=== PATIENT | female | born 1965 | race Caucasian/White ===

== ENCOUNTER 2017-01-19 22:14 | Inpatient (IN) | payer SELFPAY ==
--- NOTE | 2017-01-19 22:21 | ER Document Report ---
ED General - General Stated Complaint: HIP PAIN Notes: Old female with chronic pain syndrome on chronic narcotics presents with left distal hip pain acute onset an hour ago when she slipped on the floor. She was able to stand and bear weight, then took an oxycodone then called 911. She was unable to bear weight for paramedics to give her Dilaudid and brought her in. She has some "dazed" feeling but did not hit her head or lose consciousness has no neck pain or arm pain or rib pain or belly pain. No numbness or tingling in the foot. No pain on the right side. - Related Data Allergies/Adverse Reactions: No Known Allergies Allergy (Verified 01/19/17 22:23) Past Medical History - General Information source: Patient - Social History Smoking Status: Current Every Day Smoker Family History: None Past Surgical History: Reports: Hx Appendectomy, Hx Tonsillectomy - Immunizations Hx Diphtheria, Pertussis, Tetanus Vaccination: Yes - 2003 Review of Systems - Review of Systems Notes: REVIEW OF SYSTEMS GEN: Denies fever, chills, weight loss ENT: Denies sore throat, nasal discharge, ear pain EYES: Denies blurry vision, eye pain, discharge CV: Denies chest pain, palpitations, edema RESP: Denies cough, shortness of breath, wheezing GI: Denies abdominal pain, nausea, vomiting, diarrhea MSK: Left leg pain SKIN: Denies rash, skin lesions LYMPH: Denies swollen glands/lymph nodes NEURO: Denies headache, focal weakness or numbness, dizziness PSYCH: Denies depression, suicidal or homicidal ideation PHYSICAL EXAMINATION General: No acute distress, well-nourished Head: Atraumatic, normocephalic ENT: Mouth normal, oropharynx moist, no exudates or tonsillar enlargement Eyes: Conjunctiva normal, pupils equal, lids normal Neck: No JVD, supple, no guarding CVS: Normal rate, regular rhythm, no murmurs Resp: No resp distress, equal and normal breath sounds bilaterally GI: Nondistended, soft, no tenderness to palpation, no rebound or guarding Ext: Feng flexion. Tender in the distal femur area without spasm deformity. Knee cage ankle-foot normal on the left. Pelvis hip and lumbar spine normal on the left. Pulses. No edema. Back: No CVA or midline TTP Skin: No rash, warm Lymphatic: No lymphadeopathy noted Neuro: Awake, alert. Face symmetric. GCS 15. Course - Re-evaluation Re-evalutation: 01/19/17 22:20 Acute left distal femur pain after a fall. She was able to bear weight but is in a significant amount of pain. She appears intoxicated likely from narcotics. I will withhold further narcotics until I receive the results of her x-ray. Left hip and left femur ordered. No evidence of torso head or neck trauma. 01/19/17 22:58 X-rays show hip fracture minimally displaced transcervical. Distal femur is intact. Spoke with Dr. Rodriguez who requested hospitalist admit. 01/19/17 23:08 Maira refused admission. Michael accepted. I ordered an entire preoperative workup which will be followed up by the admitting providers. Will order as needed pain medication until they can take over. Patient informed. - Diagnostic Test Radiology reviewed: Image reviewed, Reports reviewed Discharge - Discharge Clinical Impression: Closed left hip fracture Qualifiers: Encounter type: initial encounter Qualified Code(s): S72.002A - Fracture of unspecified part of neck of left femur, initial encounter for closed fracture Condition: Good Disposition: ADMITTED INPATIENT Admitting Provider: Michael- ORTHO Unit Admitted: Surgical Floor
[2017-01-19] MEDS ORDERED: FENTANYL CITRATE INJ/PF 100 MCG/2 ML AMPUL IV ONE (23:09)
--- NOTE | 2017-01-19 23:18 | RADIOLOGY REPORT (SQ) ---
EXAM DESCRIPTION: HIP LEFT AP/LATERAL COMPLETED DATE/TIME: 01/19/2017 11:05 pm REASON FOR STUDY: fall pn COMPARISON: None. NUMBER OF VIEWS: Two views. TECHNIQUE: AP pelvis and additional frog-leg view of the left hip. LIMITATIONS: None. FINDINGS: MINERALIZATION: Normal. LEFT HIP: Fracture of the femoral neck. RIGHT HIP: No fracture or dislocation. No worrisome bone lesions. PUBIS AND ISCHIUM: No fracture. PELVIS: No fracture. SACRUM: No fracture or dislocation. No worrisome bone lesions. LOWER LUMBAR SPINE: No fracture or dislocation. No worrisome bone lesions. No significant disc disea se. SOFT TISSUES: No findings. OTHER: IUD in the pelvis. IMPRESSION: LEFT HIP FRACTURE. TECHNICAL DOCUMENTATION: JOB ID: [id number] [employer]- All Rights Reserved
--- NOTE | 2017-01-19 23:19 | RADIOLOGY REPORT (SQ) ---
EXAM DESCRIPTION: FEMUR LEFT COMPLETED DATE/TIME: 01/19/2017 11:05 pm REASON FOR STUDY: fall pn COMPARISON: None. NUMBER OF VIEWS: Two views. TECHNIQUE: Two radiographic images acquired of the left femur to include hip and knee in at least on e projection. LIMITATIONS: The proximal femur including the hip is included in the x-ray of the hip. FINDINGS: MINERALIZATION: Normal. BONES: Left femoral neck fracture demonstrated on the hip x-ray. Remainder of the femur is intact. No worrisome bone lesions. SOFT TISSUES: No obvious swelling or foreign body. OTHER: No other significant finding. IMPRESSION: FRACTURE OF THE LEFT FEMORAL NECK DEMONSTRATED ON SEPARATE X-RAY OF THE HIP. REMAINDER OF THE FEMUR IS INTACT. TECHNICAL DOCUMENTATION: JOB ID: [id number] [employer]- All Rights Reserved
[2017-01-19 23:53] LABS: ABSOLUTE BASOPHILS # (AUTO) 0.1 10^3/uL (0.0-0.2); ABSOLUTE EOSINOPHILS # (AUTO) 0.1 10^3/uL (0.0-0.6); ABSOLUTE MONOCYTES (AUTO) 0.7 10^3/uL (0.1-1.4); ABSOLUTE NEUT (AUTO) 5.7 10^3/uL (1.7-8.2); BASOPHILS % (AUTO) 0.7 % (0-2); EOSINOPHILS % (AUTO) 0.7 % (0-6); HEMATOCRIT 40.2 % (36.0-47.0); HEMOGLOBIN 13.3 g/dL (12.0-15.5); HGB HCT DIFFERENCE -0.3; LYMPHOCYTES % (AUTO) 23.1 % (13-45); MEAN CORPUSCULAR HEMOGLOBIN 33.4 pg (27.0-33.4); MEAN CORPUSCULAR HGB CONC 33.1 g/dL (32.0-36.0); MEAN CORPUSCULAR VOLUME 101 fl (80-97); MONOCYTES % (AUTO) 8.7 % (3-13); RED BLOOD COUNT 3.99 10^6/uL (3.72-5.28); RED CELL DISTRIBUTION WIDTH 12.8 % (11.5-14.0); SEGMENTED NEUTROPHILS % (AUTO) 66.8 % (42-78); WHITE BLOOD COUNT 8.5 10^3/uL (4.0-10.5)
[2017-01-20 00:14] LABS: ANION GAP 14 (5-19); BLOOD UREA NITROGEN 11 mg/dL (7-20); CALCIUM 9.2 mg/dL (8.4-10.2); CARBON DIOXIDE 22 mmol/L (22-30); CHLORIDE 103 mmol/L (98-107); CREATININE RESULT 0.64 mg/dL (0.52-1.25); GLUCOSE 92 mg/dL (75-110); POTASSIUM 4.5 mmol/L (3.6-5.0)
[2017-01-20] MEDS ORDERED: MORPHINE SULFATE 10 MG/ML INJ ONE (00:57)
[2017-01-20] MEDS ORDERED: DEXTROSE 40% GEL 15 GM TUBE PO PRN ×2 (01:01)
[2017-01-20] MEDS ORDERED: DEXTROSE 50%-WATER 25 GM/50 ML DISP.SYRIN IV PRN ×2 (01:01)
[2017-01-20] MEDS ORDERED: GLUCAGON,HUMAN RECOMB 1 MG INJ SUBCUT PRN (01:01)
[2017-01-20] MEDS ORDERED: RINGERS SOLUTION,LACTATED 1,000 ML IV PRN ×2 (01:06→15:23)
[2017-01-20] MEDS ORDERED: ONDANSETRON HCL INJ/PF 4 MG/2 ML SDV IV PRN ×2 (01:07→15:23)
--- NOTE | 2017-01-20 01:23 | RADIOLOGY REPORT (SQ) ---
EXAM DESCRIPTION: CHEST SINGLE VIEW COMPLETED DATE/TIME: 01/20/2017 12:31 am REASON FOR STUDY: fall, left femoral neck fracture. COMPARISON: Chest x-ray 11/25/2011. Left hip x-ray 01/19/2017. EXAM PARAMETERS: NUMBER OF VIEWS: One view. TECHNIQUE: Single frontal radiographic view of the chest acquired. RADIATION DOSE: NA LIMITATIONS: The left costophrenic angle is excluded from the [id number]. FINDINGS: LUNGS AND PLEURA: The left costophrenic angle is excluded from the [id number]. No cons olidation, pneumothorax or obvious pleural effusion. MEDIASTINUM AND HILAR STRUCTURES: No masses. Contour normal. HEART AND VASCULAR STRUCTURES: Heart normal in size. No overt vascular congestion. BONES: No displaced rib fractures are identified. HARDWARE: None in the chest. IMPRESSION: No acute radiographic finding in the chest. TECHNICAL DOCUMENTATION: JOB ID: [id number]
[2017-01-20] MEDS: MORPHINE SULFATE 10 MG/ML INJ IV PRN ×5 (03:11→22:07)
[2017-01-20] MEDS ORDERED: DEXAMETHASONE SOD PHOSPHATE INJ 4 MG/1 ML VIAL ONE (08:08)
[2017-01-20] MEDS ORDERED: METOCLOPRAMIDE HCL INJ/PF 10 MG/2 ML SDV ONE (08:08)
[2017-01-20] MEDS ORDERED: ONDANSETRON HCL INJ/PF 4 MG/2 ML SDV ONE (08:08)
[2017-01-20] MEDS ORDERED: LIDOCAINE 2% INJ-PF (20 MG/ML) 10 ML AMPUL ONE (08:08)
[2017-01-20] MEDS ORDERED: PHENYLEPHRINE HCL INJ/PF 10 MG/1 ML SDV ONE (08:08)
--- NOTE | 2017-01-20 10:02 | EKG REPORT ---
SEVERITY:- NORMAL ECG - SINUS RHYTHM : Confirmed by: Obinna Boland MD 20-Jan-2017 10:01:51
[2017-01-20] MEDS ORDERED: TRANEXAMIC ACID INJ/PF 1,000 MG/10 ML SDV IV PRN (12:44)
[2017-01-20] MEDS ORDERED: VANCOMYCIN HCL 1,000 MG in DEXTROSE 5%-WATER 250 ML IV PRN (12:44)
[2017-01-20] MEDS ORDERED: IPRATROPIUM/ALBUTEROL 0.5-2.5 MG/3 ML AMPUL NEB ONE ×2 (12:55→13:46)
--- NOTE | 2017-01-20 12:56 | PDOC H&P ---
History of Present Illness Admission Date/PCP: 01/20/17 00:59 History of Present Illness: SARAH SNOWDEN is a 51 year old female with a history of chronic pain who slipped and fell on the day of admission. She was unable to bear weight on the left lower extremity. She is brought to the emergency room where displaced left femoral neck fracture was identified. She is admitted to the orthopedic service for fracture management. Past Medical History Medical History: None Psychiatric Medical History: Denies: Depression Past Surgical History Past Surgical History: Reports: Appendectomy, Tonsillectomy Social History Information Source: Patient, [facility] Records Smoking Status: Current Every Day Smoker Frequency of Alcohol Use: Social Hx Recreational Drug Use: No Drugs: None Hx Prescription Drug Abuse: No - Advance Directive Resuscitation Status: Full Code Family History Family History: None Parental Family History Reviewed: No Children Family History Reviewed: No Sibling(s) Family History Reviewed.: No Medication/Allergy Home Medications: Aspirin [Aspirin 81 mg Chewable Tablet] 81 mg PO DAILY 01/20/17 Allergies/Adverse Reactions: No Known Allergies Allergy (Verified 01/19/17 22:23) Review of Systems All systems: as per [facility] Physical Exam Vital Signs: Temp Pulse Resp BP Pulse Ox 36.7 C 66 16 114/71 97 01/20/17 11:52 01/20/17 11:52 01/20/17 11:52 01/20/17 11:52 01/20/17 11:52 Intake & Output 01/19/17 01/20/17 01/21/17 06:59 06:59 06:59 Intake Total 673 Output Total 1999 Balance -1327 Weight 59 kg General appearance: PRESENT: mild distress Head exam: PRESENT: normocephalic Eye exam: PRESENT: EOMI Respiratory exam: PRESENT: unlabored Cardiovascular exam: PRESENT: RRR Pulses: PRESENT: +1 pedal pulses bilateral Vascular exam: PRESENT: normal capillary refill GI/Abdominal exam: PRESENT: soft Rectal exam: PRESENT: deferred Extremities exam: PRESENT: other - Lower extremity shortened and externally rotated. Distal neurovascular examination is intact. Neurological exam: PRESENT: alert, awake, oriented to person, oriented to place , oriented to time, oriented to situation, CN II-XII grossly intact. ABSENT: motor sensory deficit Psychiatric exam: PRESENT: appropriate affect, normal mood. ABSENT: homicidal ideation, suicidal ideation Skin exam: PRESENT: dry, intact, warm. ABSENT: cyanosis, rash Results Impressions: Femur X-Ray 01/19/17 22:18 IMPRESSION: FRACTURE OF THE LEFT FEMORAL NECK DEMONSTRATED ON SEPARATE X-RAY OF THE HIP. REMAINDER OF THE FEMUR IS INTACT. Hip X-Ray 01/19/17 22:18 IMPRESSION: LEFT HIP FRACTURE. Chest X-Ray 01/20/17 00:00 IMPRESSION: No acute radiographic finding in the chest. Status: Imported from PACS Assessment & Plan - Diagnosis (1) Closed left hip fracture Qualifiers: Encounter type: initial encounter Qualified Code(s): S72.002A - Fracture of unspecified part of neck of left femur, initial encounter for closed fracture Is this a current diagnosis for this admission?: YesPlan: 51-year-old white female status post a fall with a displaced left femoral neck fracture. Patient will be best served to proximal femoral hemiarthroplasty. We will proceed with this under choice anesthesia on an inpatient basis. - Time Time Spent: 50 to 70 Minutes Anticipated discharge: SNF Within: Other
[2017-01-20] MEDS ORDERED: KETAMINE HCL INJ 500 MG/10 ML VIAL ONE (14:21)
[2017-01-20] MEDS ORDERED: EPHEDRINE SULFATE INJ 50 MG/1 ML AMPULE ONE (14:22)
[2017-01-20] MEDS ORDERED: FENTANYL CITRATE INJ/PF 100 MCG/2 ML AMPUL ONE (14:22)
[2017-01-20] MEDS ORDERED: MIDAZOLAM 2 MG/2 ML INJ ONE (14:22)
[2017-01-20] MEDS ORDERED: PROPOFOL INJ 200 MG/20 ML VIAL IV ONE (14:22)
[2017-01-20] MEDS ORDERED: ACETAMINOPHEN 100 ML IV ONE (14:23)
[2017-01-20] MEDS ORDERED: MORPHINE SULFATE 10 MG/ML INJ IV PRN ×2 (15:23)
[2017-01-20] MEDS ORDERED: ZOLPIDEM TARTRATE 5 MG TABLET PO PRN (15:23)
[2017-01-20] MEDS ORDERED: MAG HYDROX/AL HYDROX/SIMETH SUSP 30 ML UDCUP PO PRN (15:23)
[2017-01-20] MEDS ORDERED: ONDANSETRON 4 MG TAB.RAPDIS PO PRN (15:23)
[2017-01-20] MEDS ORDERED: MORPHINE SULFATE 10 MG/ML INJ IM PRN (15:23)
[2017-01-20] MEDS ORDERED: DIPHENHYDRAMINE HCL 50 MG/ML VIAL IV PRN (15:23)
--- NOTE | 2017-01-20 15:23 | Operative Report ---
Operative Report DATE OF SURGERY: 01/20/17 PREOPERATIVE DIAGNOSIS: Left femoral neck fracture OPERATION: Proximal femoral hemiarthroplasty SURGEON: KAYCE DONAHUE ANESTHESIA: Spinal TISSUE REMOVED OR ALTERED: Femoral head to pathology ESTIMATED BLOOD LOSS: 50 PROCEDURE: With the patient in a right lateral decubitus position the left lower extremity hindquarter prepped and draped in a sterile fashion. A curvilinear incision made over the greater trochanter a posterior approach the hip was taken. The femur was retracted anteriorly and underlying femoral neck and head are retrieved using a corkscrew. The femoral head was measured and noted to be 44 millimeters. Attention is now turned to the femur. Access is gained to the femoral canal using a box osteotome to the piriformis fossa. The femur is then prepared using a series of tapered broaches until a number 5 broach is seated. A trial reduction was now performed using a 44 head and -5 neck. Leg length was restored and there is excellent anterior posterior stability. A decision was made to proceed with this construct. All trial implants were removed. The final number 5 femoral stem is impacted into the canal. The -5 neck is impacted onto the trunnion. Final unipolar head 44 millimeters is impacted onto the neck. The hip was reduced. The wound is copiously irrigated with pulsed lavage. A subsequent closed in layers using Vicryl and wallace. A sterile dressing is applied. The patient was returned to the recovery room in satisfactory condition.
--- NOTE | 2017-01-20 16:11 | RADIOLOGY REPORT (SQ) ---
EXAM DESCRIPTION: PELVIS AP COMPLETED DATE/TIME: 01/20/2017 4:03 pm REASON FOR STUDY: Post Op Long Cassette in PACU COMPARISON: 01/19/2017. NUMBER OF VIEWS: One view TECHNIQUE: Digital radiographic images of the pelvis post-procedure LIMITATIONS: None. FINDINGS: BONES: No worrisome or unexpected findings post-procedure. DEVICE: Bi-polar prothesis. Device appears in appropriate location. SOFT TISSUES: No worrisome findings. Expected postoperative soft tissue changes. IMPRESSION: SATISFACTORY POSTOPERATIVE PELVIS. TECHNICAL DOCUMENTATION: JOB ID: [id number] [employer]- All Rights Reserved
[2017-01-20] MEDS: PREGABALIN 75 MG CAPSULE PO SCH (17:21)
[2017-01-20] MEDS: SENNOSIDES/DOCUSATE 8.6-50 MG 1 EACH TABLET PO SCH (17:22)
[2017-01-20] MEDS ORDERED: IBUPROFEN 800 MG in NORMAL SALINE 250 ML IV SCH (18:00)
[2017-01-20] MEDS: OXYCODONE HCL IR 5 MG TABLET PO PRN (18:05)
[2017-01-20] MEDS ORDERED: TRANEXAMIC ACID INJ/PF 1,000 MG/10 ML SDV IV ONE (18:30)
[2017-01-20] MEDS: RIVAROXABAN 10 MG TABLET PO SCH (21:25)
[2017-01-20] MEDS: OXYCODONE HCL SR 10 MG TABLET PO SCH (21:25)
[2017-01-20] MEDS: ACETAMINOPHEN 100 ML IV SCH (23:44)
[2017-01-21] MEDS: OXYCODONE HCL IR 5 MG TABLET PO PRN ×3 (03:01→20:05)
[2017-01-21] MEDS ORDERED: VANCOMYCIN HCL 1,000 MG in DEXTROSE 5%-WATER 250 ML IV ONE (03:23)
[2017-01-21] MEDS: ACETAMINOPHEN 100 ML IV SCH ×3 (05:41→17:47)
[2017-01-21] MEDS: LANSOPRAZOLE 30 MG TAB.RAP.DR PO SCH (05:43)
[2017-01-21] MEDS: MORPHINE SULFATE 10 MG/ML INJ IV PRN ×3 (05:45→18:49)
[2017-01-21 05:51] LABS: HEMATOCRIT 34.5 % (36.0-47.0); HEMOGLOBIN 11.6 g/dL (12.0-15.5); HGB HCT DIFFERENCE 0.3; MEAN CORPUSCULAR HEMOGLOBIN 33.6 pg (27.0-33.4); MEAN CORPUSCULAR HGB CONC 33.6 g/dL (32.0-36.0); MEAN CORPUSCULAR VOLUME 100 fl (80-97); RED BLOOD COUNT 3.46 10^6/uL (3.72-5.28); RED CELL DISTRIBUTION WIDTH 12.6 % (11.5-14.0); WHITE BLOOD COUNT 12.2 10^3/uL (4.0-10.5)
[2017-01-21 06:06] LABS: ANION GAP 7 (5-19); BLOOD UREA NITROGEN 9 mg/dL (7-20); CALCIUM 9.1 mg/dL (8.4-10.2); CARBON DIOXIDE 26 mmol/L (22-30); CHLORIDE 104 mmol/L (98-107); CREATININE RESULT 0.55 mg/dL (0.52-1.25); GLUCOSE 153 mg/dL (75-110); POTASSIUM 4.5 mmol/L (3.6-5.0); SODIUM 137.2 mmol/L (137-145)
[2017-01-21] MEDS: PREGABALIN 75 MG CAPSULE PO SCH ×2 (10:07→17:47)
[2017-01-21] MEDS: SENNOSIDES/DOCUSATE 8.6-50 MG 1 EACH TABLET PO SCH ×2 (10:07→17:47)
[2017-01-21] MEDS: OXYCODONE HCL SR 10 MG TABLET PO SCH ×2 (10:07→21:25)
[2017-01-21] MEDS: PRENATAL VITAMIN W-O CA NO5/FE FUMARATE/FA CAPSULE PO SCH (10:12)
[2017-01-21] MEDS: RIVAROXABAN 10 MG TABLET PO SCH (21:25)
[2017-01-22] MEDS: MORPHINE SULFATE 10 MG/ML INJ IV PRN ×3 (02:11→20:37)
[2017-01-22] MEDS: OXYCODONE HCL IR 5 MG TABLET PO PRN ×3 (04:44→21:48)
[2017-01-22] MEDS: LANSOPRAZOLE 30 MG TAB.RAP.DR PO SCH (05:30)
[2017-01-22 07:05] LABS: HEMATOCRIT 34.1 % (36.0-47.0); HEMOGLOBIN 11.5 g/dL (12.0-15.5); HGB HCT DIFFERENCE 0.4; MEAN CORPUSCULAR HGB CONC 33.7 g/dL (32.0-36.0); MEAN CORPUSCULAR VOLUME 101 fl (80-97); RED BLOOD COUNT 3.38 10^6/uL (3.72-5.28); RED CELL DISTRIBUTION WIDTH 12.6 % (11.5-14.0); WHITE BLOOD COUNT 10.5 10^3/uL (4.0-10.5)
--- NOTE | 2017-01-22 07:48 | PDOC PROGRESS REPORT ---
Subjective Progress Note for:: 01/22/17 Subjective:: Complaining of increased pain today Physical Exam Vital Signs: Temp Pulse Resp BP Pulse Ox 36.8 C 62 19 89/48 L 94 01/22/17 00:00 01/22/17 00:00 01/22/17 00:00 01/22/17 00:00 01/22/17 00:00 Intake & Output 01/21/17 01/22/17 01/23/17 06:59 06:59 06:59 Intake Total 6440 4704 Output Total 6780 Balance -340 4704 Weight 62.1 kg General appearance: PRESENT: mild distress Head exam: PRESENT: normocephalic Eye exam: PRESENT: EOMI Respiratory exam: PRESENT: unlabored Cardiovascular exam: PRESENT: RRR Pulses: PRESENT: +1 pedal pulses bilateral Vascular exam: PRESENT: normal capillary refill GI/Abdominal exam: PRESENT: soft Rectal exam: PRESENT: deferred Extremities exam: PRESENT: other - Left hip dressing is clean dry and intact. There is minimal induration. There is no erythema. Distal neurovascular examination is intact. Leg lengths are equal. Neurological exam: PRESENT: alert, awake, oriented to person, oriented to place , oriented to time, oriented to situation. ABSENT: motor sensory deficit Psychiatric exam: PRESENT: agitated Skin exam: PRESENT: dry, intact, warm. ABSENT: cyanosis, rash Results Laboratory Results: 01/22/17 06:42 01/21/17 05:25 01/22/17 06:42 WBC 10.5 RBC 3.38 L Hgb 11.5 L Hct 34.1 L MCV 101 H MCH 34.0 H MCHC 33.7 RDW 12.6 Plt Count 198 Impressions: Femur X-Ray 01/19/17 22:18 IMPRESSION: FRACTURE OF THE LEFT FEMORAL NECK DEMONSTRATED ON SEPARATE X-RAY OF THE HIP. REMAINDER OF THE FEMUR IS INTACT. Hip X-Ray 01/19/17 22:18 IMPRESSION: LEFT HIP FRACTURE. Chest X-Ray 01/20/17 00:00 IMPRESSION: No acute radiographic finding in the chest. Pelvis X-Ray 01/20/17 15:24 IMPRESSION: SATISFACTORY POSTOPERATIVE PELVIS. Status: Imported from PACS Assessment & Plan - Diagnosis (1) Closed left hip fracture Qualifiers: Encounter type: initial encounter Qualified Code(s): S72.002A - Fracture of unspecified part of neck of left femur, initial encounter for closed fracture Is this a current diagnosis for this admission?: YesPlan: 51-year-old white female status post left proximal femoral hemiarthroplasty, postop day 2. Limited progress with physical therapy yesterday ambulating 40 feet. - Time Time Spent with patient: 15-24 minutes Anticipated discharge: Home with Homehealth Within: within 24 hours
[2017-01-22] MEDS: OXYCODONE HCL SR 10 MG TABLET PO SCH (10:30)
[2017-01-22] MEDS: PREGABALIN 75 MG CAPSULE PO SCH ×2 (10:30→17:45)
[2017-01-22] MEDS: SENNOSIDES/DOCUSATE 8.6-50 MG 1 EACH TABLET PO SCH ×2 (10:30→17:45)
[2017-01-22] MEDS: PRENATAL VITAMIN W-O CA NO5/FE FUMARATE/FA CAPSULE PO SCH (10:33)
[2017-01-22] MEDS: RIVAROXABAN 10 MG TABLET PO SCH (21:48)
[2017-01-23] MEDS: MORPHINE SULFATE 10 MG/ML INJ IV PRN ×3 (00:38→15:30)
[2017-01-23] MEDS: OXYCODONE HCL IR 5 MG TABLET PO PRN ×3 (04:10→19:27)
[2017-01-23] MEDS: LANSOPRAZOLE 30 MG TAB.RAP.DR PO SCH (05:04)
[2017-01-23 06:32] LABS: HEMATOCRIT 35.3 % (36.0-47.0); HEMOGLOBIN 11.9 g/dL (12.0-15.5); HGB HCT DIFFERENCE 0.4; MEAN CORPUSCULAR HEMOGLOBIN 33.6 pg (27.0-33.4); MEAN CORPUSCULAR HGB CONC 33.6 g/dL (32.0-36.0); MEAN CORPUSCULAR VOLUME 100 fl (80-97); RED BLOOD COUNT 3.54 10^6/uL (3.72-5.28); RED CELL DISTRIBUTION WIDTH 12.9 % (11.5-14.0)
--- NOTE | 2017-01-23 07:34 | PDOC PROGRESS REPORT ---
Subjective Progress Note for:: 01/23/17 Subjective:: He reports that left hip pain is interfering with her ability to rehabilitate. Physical Exam Vital Signs: Temp Pulse Resp BP Pulse Ox 36.5 C 66 18 117/60 97 01/23/17 00:34 01/23/17 00:34 01/23/17 00:34 01/23/17 00:34 01/23/17 00:34 Intake & Output 01/22/17 01/23/17 01/24/17 06:59 06:59 06:59 Intake Total 4704 1330 Balance 4704 1330 Weight 62.1 kg 62.1 kg General appearance: PRESENT: mild distress Respiratory exam: PRESENT: unlabored Cardiovascular exam: PRESENT: RRR Extremities exam: PRESENT: other - Tip OpSite dressing is clean dry and intact without any drainage. Leg lengths are equal. There is no erythema induration or drainage. Distal neurovascular examination is intact. Results Laboratory Results: 01/23/17 06:07 01/21/17 05:25 01/23/17 06:07 WBC 9.0 RBC 3.54 L Hgb 11.9 L Hct 35.3 L MCV 100 H MCH 33.6 H MCHC 33.6 RDW 12.9 Plt Count 241 Impressions: Femur X-Ray 01/19/17 22:18 IMPRESSION: FRACTURE OF THE LEFT FEMORAL NECK DEMONSTRATED ON SEPARATE X-RAY OF THE HIP. REMAINDER OF THE FEMUR IS INTACT. Hip X-Ray 01/19/17 22:18 IMPRESSION: LEFT HIP FRACTURE. Chest X-Ray 01/20/17 00:00 IMPRESSION: No acute radiographic finding in the chest. Pelvis X-Ray 01/20/17 15:24 IMPRESSION: SATISFACTORY POSTOPERATIVE PELVIS. Status: Imported from PACS Assessment & Plan - Diagnosis (1) Closed left hip fracture Qualifiers: Encounter type: initial encounter Qualified Code(s): S72.002A - Fracture of unspecified part of neck of left femur, initial encounter for closed fracture Is this a current diagnosis for this admission?: YesPlan: 51-year-old white female postop day 2 from a left hemiarthroplasty for displaced femoral neck fracture. Hematocrit remains above 35%. Patient is ambulating 40 feet. Tentative plan would be for discharge home once the patient reached his appropriate functional milestones - Time Time Spent with patient: 15-24 minutes Anticipated discharge: Home with Homehealth Within: within 24 hours
[2017-01-23] MEDS: SENNOSIDES/DOCUSATE 8.6-50 MG 1 EACH TABLET PO SCH ×2 (10:48→18:17)
[2017-01-23] MEDS: PRENATAL VITAMIN W-O CA NO5/FE FUMARATE/FA CAPSULE PO SCH (10:48)
[2017-01-23] MEDS: PREGABALIN 75 MG CAPSULE PO SCH ×2 (10:48→18:17)
[2017-01-23] MEDS: ACETAMINOPHEN 325 MG TABLET PO PRN ×2 (10:51→19:28)
[2017-01-23] MEDS: RIVAROXABAN 10 MG TABLET PO SCH (21:37)
[2017-01-24] MEDS: OXYCODONE HCL IR 5 MG TABLET PO PRN ×2 (02:35→08:33)
[2017-01-24] MEDS: MORPHINE SULFATE 10 MG/ML INJ IV PRN (03:46)
[2017-01-24] MEDS: LANSOPRAZOLE 30 MG TAB.RAP.DR PO SCH (05:17)
--- NOTE | 2017-01-24 07:00 | PDOC DISCHARGE SUMMARY ---
General - Admit/Disc Date/PCP Admission Date/Primary Care Provider: 01/20/17 00:59 Discharge Date: 01/24/17 - Discharge Diagnosis (1) Closed left hip fracture Is this a current diagnosis for this admission?: Yes - Additional Information Resuscitation Status: Full Code Discharge Diet: As Tolerated, Regular Discharge Activity: Balance Activity w/Rest, No Driving, No tub bath Home Medications: Aspirin [Aspirin 81 mg Chewable Tablet] 81 mg PO DAILY 01/20/17 Oxycodone HCl [Oxy-Ir 5 mg Tablet] 5 mg PO Q6HP PRN #0 tablet 01/24/17 Rivaroxaban [Xarelto 10 mg Tablet] 10 mg PO QHS #0 tablet 01/24/17 History of Present Illness History of Present Illness: Patient is a 51-year-old white female who presents the emergency room status post a fall with a left femoral neck fracture diagnosed by x-ray. She is admitted to orthopedic service for fracture management. Hospital Course Hospital Course: Taken to the operating room and undergoes an uncomplicated left hemiarthroplasty. She is returned to the floor and seen by physical therapy. She makes slow steady progress with physical therapy. Continues to complain of inadequate analgesia. She is ambulating 80 feet on the day of discharge. Physical Exam Vital Signs: Temp Pulse Resp BP Pulse Ox 36.6 C 66 16 104/58 L 97 01/23/17 23:37 01/23/17 23:37 01/23/17 23:37 01/23/17 23:37 01/23/17 23:37 Intake & Output 01/22/17 01/23/17 01/24/17 06:59 06:59 06:59 Intake Total 4704 1330 1650 Balance 4704 1330 1650 Weight 62.1 kg 62.1 kg General appearance: PRESENT: mild distress Head exam: PRESENT: normocephalic Eye exam: PRESENT: EOMI Respiratory exam: PRESENT: unlabored Cardiovascular exam: PRESENT: RRR Pulses: PRESENT: +1 pedal pulses bilateral Vascular exam: PRESENT: normal capillary refill GI/Abdominal exam: PRESENT: soft Rectal exam: PRESENT: deferred Extremities exam: PRESENT: other - Tip dressing is clean dry and intact. Leg lengths are equal. Distal neurovascular examination is intact. Neurological exam: PRESENT: alert, awake, oriented to person, oriented to place , oriented to time, oriented to situation. ABSENT: motor sensory deficit Psychiatric exam: PRESENT: appropriate affect, normal mood. ABSENT: homicidal ideation, suicidal ideation Skin exam: PRESENT: dry, intact, warm. ABSENT: cyanosis, rash Results Laboratory Results: 01/23/17 06:07 01/21/17 05:25 Impressions: Femur X-Ray 01/19/17 22:18 IMPRESSION: FRACTURE OF THE LEFT FEMORAL NECK DEMONSTRATED ON SEPARATE X-RAY OF THE HIP. REMAINDER OF THE FEMUR IS INTACT. Hip X-Ray 01/19/17 22:18 IMPRESSION: LEFT HIP FRACTURE. Chest X-Ray 01/20/17 00:00 IMPRESSION: No acute radiographic finding in the chest. Pelvis X-Ray 01/20/17 15:24 IMPRESSION: SATISFACTORY POSTOPERATIVE PELVIS. Status: Imported from PACS Plan Discharge Plan: Discharge home with home health nursing, home health physical therapy, wheeled walker, bedside commode. Follow-up will be with frankie Rodriguez and [facility] for surgery in 2 weeks for staple removal.
[2017-01-24 08:25] VITALS: BP 133/92
[2017-01-24] MEDS: ACETAMINOPHEN 325 MG TABLET PO PRN (08:39)
[2017-01-24] MEDS: PREGABALIN 75 MG CAPSULE PO SCH (10:32)
[2017-01-24] MEDS: SENNOSIDES/DOCUSATE 8.6-50 MG 1 EACH TABLET PO SCH (10:33)
[2017-01-24] MEDS: PRENATAL VITAMIN W-O CA NO5/FE FUMARATE/FA CAPSULE PO SCH (10:33)
== END 2017-01-24 11:15 | disposition home health service (06) | DRG 470 ==
LOC: ER 22:14 → UNDOADMIN 23:34 → EH 23:34 → 4S 01-20 00:39 → EH 01-20 00:59 → 4S 01-20 00:59
PROVIDERS: ADMIT Orthopaedic Surgery; ATTEND Orthopaedic Surgery
PROC: 0SRS01Z Replacement of Left Hip Joint, Femoral Surface with Metal Synthetic Substitute, Open Approach (ICD-10-PCS; principal; 2017-01-20 14:30)
DX: S72.002A Fracture of unspecified part of neck of left femur, initial encounter for closed fracture (principal); W01.0XXA Fall on same level from slipping, tripping and stumbling without subsequent striking against object, initial encounter; F17.210 Nicotine dependence, cigarettes, uncomplicated; G89.4 Chronic pain syndrome; Y92.008 Other place in unspecified non-institutional (private) residence as the place of occurrence of the external cause; Z90.49 Acquired absence of other specified parts of digestive tract; Z79.82 Long term (current) use of aspirin; Z79.891 Long term (current) use of opiate analgesic
CPT/HCPCS: 01210; 36415; 71010; 72170; 80048; 85025; 85027; 86850; 86900; 86901; 88304; 88311; 93005; 93010; 94799; 99285; J0131; J1100; J2250; J2270; J2370; J2405; J2704; J2765; J3010; J3370; J3490; J7060; J7620

== ENCOUNTER 2017-02-18 19:44 | Emergency (ER) | payer SELFPAY | END 2017-02-18 20:15 | disposition left against medical advice (07) | LOC: ER 19:44 | DX: Z53.9 Procedure and treatment not carried out, unspecified reason (principal); M54.9 Dorsalgia, unspecified ==

== ENCOUNTER 2017-02-20 12:31 | Emergency (ER) | payer OTHER ==
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
[2017-02-20 13:56] VITALS: BP 100/47
== END 2017-02-20 13:53 | disposition home or self-care (01) ==
LOC: ER 12:31
DX: S16.1XXA Strain of muscle, fascia and tendon at neck level, initial encounter (principal); S39.012A Strain of muscle, fascia and tendon of lower back, initial encounter; V43.62XA Car passenger injured in collision with other type car in traffic accident, initial encounter
CPT/HCPCS: 99283

== ENCOUNTER 2019-01-27 09:43 | Emergency (ER) | payer SELFPAY ==
--- NOTE | 2019-01-27 10:25 | ER Document Report ---
ED GI/ - General Chief Complaint: STD Exposure Stated Complaint: POSSIBLE STD Time Seen by Provider: 01/27/19 10:14 Mode of Arrival: Ambulatory Information source: Patient Notes: Patient is a 53-year-old female who presents to the ER today for green vaginal discharge x3 days. Patient has had trichomonas STD before and is concerned that this feels like the same thing to her. Patient is sexually active and states that the condom did break prior to discharge starting. She admits to some burning with urination and some lower abdominal pain, no back pain or fever, no nausea or vomiting. TRAVEL OUTSIDE OF THE [place] IN LAST 30 DAYS: No - Related Data Allergies/Adverse Reactions: ibuprofen Allergy (Intermediate, Verified 02/20/17 12:52) ulcers in mouth acetaminophen [From Lortab] Allergy (Verified 01/27/19 09:54) hydrocodone [From Lortab] Allergy (Verified 01/27/19 09:54) naproxen Allergy (Verified 01/27/19 09:54) Past Medical History - General Information source: Patient - Social History Smoking Status: Former Smoker Frequency of alcohol use: None Drug Abuse: None Family History: None Patient has suicidal ideation: No Patient has homicidal ideation: No Renal/ Medical History: Denies: Hx Peritoneal Dialysis Psychiatric Medical History: Denies: Hx Depression Past Surgical History: Reports: Hx Appendectomy, Hx Orthopedic Surgery - L hip replacement, Hx Pancreatic Surgery - lef hip replacement, Hx Tonsillectomy, Other - left hip replacement - Immunizations Hx Diphtheria, Pertussis, Tetanus Vaccination: Yes - 2003 Review of Systems - Review of Systems Constitutional: No symptoms reported EENT: No symptoms reported Cardiovascular: No symptoms reported Respiratory: No symptoms reported Gastrointestinal: See HPI Genitourinary: No symptoms reported Female Genitourinary: See HPI Musculoskeletal: No symptoms reported Skin: No symptoms reported Hematologic/Lymphatic: No symptoms reported Neurological/Psychological: No symptoms reported Physical Exam - Vital signs Vitals: Temp Pulse Resp BP Pulse Ox 98.8 F 83 16 105/70 97 01/27/19 09:56 01/27/19 09:56 01/27/19 09:56 01/27/19 09:56 01/27/19 09:56 - Notes Notes: PHYSICAL EXAMINATION: GENERAL: Well-appearing and in no acute distress. HEAD: Atraumatic, normocephalic. EYES: Pupils equal round and reactive to light, extraocular movements intact, sclera anicteric, conjunctiva are normal. NECK: Normal range of motion, supple without lymphadenopathy LUNGS: CTAB and equal. No wheezes rales or rhonchi. HEART: Regular rate and rhythm without murmurs ABDOMEN: Soft, mild suprapubic tenderness. No guarding, no rebound BACK: no vertebral tenderness, normal ROM GI/: no CVA tenderness EXTREMITIES: Normal range of motion, no pitting edema. No cyanosis. NEUROLOGICAL: Cranial nerves grossly intact. Normal sensory/motor exams. PSYCH: Normal mood, normal affect. SKIN: Warm, Dry, normal turgor, no rashes or lesions noted Course - Re-evaluation Re-evalutation: 01/27/19 11:16 Patient positive for trichomonas, 4+ bacteria on her wet prep, gonorrhea chlamydia still pending, patient treated with Rocephin and azithromycin here in the emergency department, given 2 g of Flagyl to take once for her bacterial vaginosis and trichomonas. Urine culture pending as she did have leukocytes in her urinalysis that I suspect is due to pelvic infection and not UTI. - Vital Signs Vital signs: Temp Pulse Resp BP Pulse Ox 98.8 F 83 16 105/70 97 01/27/19 09:56 01/27/19 09:56 01/27/19 09:56 01/27/19 09:56 01/27/19 09:56 - Laboratory Laboratory results interpreted by me: 01/27/19 10:35 Ur Leukocyte Esterase LARGE H Discharge - Discharge Clinical Impression: Trichomonas vaginalis (TV) infection, Bacterial vaginitis Condition: Stable Disposition: HOME, SELF-CARE Instructions: Trichomonas Infection ([facility]), Vaginosis, Bacterial ([facility]) Additional Instructions: Return immediately for any new or worsening symptoms. Follow up with primary care provider, call tomorrow to make followup appoi ntment. Prescriptions: Metronidazole [Flagyl 500 mg Tablet] 2,000 mg PO ONCE PRN #4 tablet PRN Reason:
[2019-01-27 10:56] LABS: BACTERIA (WET MOUNT) 4+ BACTERIA SEEN; EPITHELIALS (WET MOUNT) 3+ EPITHELIALS SEEN; RBCS (WET MOUNT) RARE RBCS SEEN; T.VAGINALIS (WET MOUNT) TRICHOMONAS SEEN; WBCS (WET MOUNT) 3+ WBCS SEEN; YEAST (WET MOUNT) NO YEAST SEEN
[2019-01-27 11:02] LABS: APPEARANCE,URINE SLIGHTLY-CLOUDY; BILIRUBIN,URINE NEGATIVE (NEGATIVE); COLOR,URINE YELLOW; GLUCOSE, URINE NEGATIVE (NEGATIVE); KETONES,URINE NEGATIVE (NEGATIVE); LEUKOCYTE ESTERASE,URINE LARGE (NEGATIVE); NITRITE,URINE NEGATIVE (NEGATIVE); PROTEIN,URINE NEGATIVE (NEGATIVE); URINE SPECIFIC GRAVITY 1.006; UROBILINOGEN,URINE NEGATIVE mg/dL (<2.0)
[2019-01-27] MEDS ORDERED: CEFTRIAXONE INJ 250 MG VIAL IM ONE (11:13)
[2019-01-27] MEDS ORDERED: LIDOCAINE 1% INJ-PF (10 MG/ML) 30 ML SDV INFIL ONE (11:13)
[2019-01-27] MEDS ORDERED: AZITHROMYCIN 250 MG TABLET PO ONE (11:13)
[2019-01-27 12:12] VITALS: BP 102/65
[2019-01-27 12:21] LABS: CHLAM PCR NOT DETECTED (NOT DETECT)
== END 2019-01-27 12:12 | disposition home or self-care (01) ==
LOC: ER 09:43
DX: A59.01 Trichomonal vulvovaginitis (principal); N76.0 Acute vaginitis; B96.89 Other specified bacterial agents as the cause of diseases classified elsewhere; R30.9 Painful micturition, unspecified; R10.30 Lower abdominal pain, unspecified; Z87.891 Personal history of nicotine dependence; Z20.2 Contact with and (suspected) exposure to infections with a predominantly sexual mode of transmission
CPT/HCPCS: 99283; 96374; 96375; 87086; 87210; 81001; 87491; 87591; J3490; J0696

== ENCOUNTER 2019-03-24 08:03 | Emergency (ER) | payer SELFPAY ==
[2019-03-24] MEDS ORDERED: AZITHROMYCIN 250 MG TABLET PO ONE (08:58)
[2019-03-24] MEDS ORDERED: CEFTRIAXONE 1 GM/D5W RTU 1 GM/50 ML RTUPB IV ONE (08:58)
--- NOTE | 2019-03-24 09:02 | ER Document Report ---
ED General - General Chief Complaint: Chest Pain Stated Complaint: CHEST PAIN Time Seen by Provider: 03/24/19 08:48 Notes: 53-year-old female presents to the ER complaining of chest pain vaginal discharge burning with urination. The patient stated she had unprotected sexual intercourse with a gentleman she frequents on the . She began having symptoms on the she complains of green vaginal discharge. Complains of a sore throat they did have oral sex. The patient states the sore throat goes all the way down into her chest is giving her chest pain she denies shortness of breath. States is been coughing up green sputum. Denies fever chills. Denies diarrhea or constipation denies nausea. Complains of severe burning in her t hroat hurts worse to swallow. TRAVEL OUTSIDE OF THE [place] IN LAST 30 DAYS: No - Related Data Allergies/Adverse Reactions: ibuprofen Allergy (Intermediate, Verified 03/24/19 08:04) ulcers in mouth acetaminophen [From Lortab] Allergy (Verified 03/24/19 08:04) hydrocodone [From Lortab] Allergy (Verified 03/24/19 08:04) naproxen Allergy (Verified 03/24/19 08:04) Past Medical History - Social History Smoking Status: Current Every Day Smoker Family History: None Renal/ Medical History: Denies: Hx Peritoneal Dialysis Psychiatric Medical History: Denies: Hx Depression Past Surgical History: Reports: Hx Appendectomy, Hx Orthopedic Surgery - L hip replacement, Hx Pancreatic Surgery - lef hip replacement, Hx Tonsillectomy, Other - left hip replacement - Immunizations Hx Diphtheria, Pertussis, Tetanus Vaccination: Yes - 2003 Review of Systems - Review of Systems Constitutional: denies: Chills, Fever EENT: Throat pain Cardiovascular: Chest pain, Dyspnea Respiratory: Cough. denies: Short of breath Gastrointestinal: Abdominal pain. denies: Diarrhea, Nausea, Vomiting Genitourinary: Burning, Dysuria Female Genitourinary: Vaginal discharge Musculoskeletal: denies: Back pain Neurological/Psychological: denies: Headaches -: Yes All other systems reviewed and negative Physical Exam - Vital signs Vitals: Temp Pulse Resp BP Pulse Ox 98.6 F 95 19 107/63 96 03/24/19 08:14 03/24/19 08:14 03/24/19 08:14 03/24/19 08:14 03/24/19 08:14 - Notes Notes: GENERAL_APPEARANCE: well_nourished, alert, cooperative, no_acute_distress, no_obvious_discomfort. VITALS: reviewed, see vital signs table. HEAD: no_swelling\tenderness on the head. EYES: PERRL, EOMI, conjunctiva_clear. NOSE: no_nasal_discharge. MOUTH: (-)decreased moisture. No drooling or stridor THROAT: Mild throat_inflammation, no_airway_obstruction. no_lymphadenopathy, no asymmetry NECK: supple, no_neck_tenderness, (-)thyromegaly. BACK: no_back_tenderness. CHEST_WALL: no_chest_tenderness. LUNGS: no_wheezing, no_rales, no_rhonchi, (-)accessory muscle use, good air exchange bilateral. HEART: normal_rate, normal_rhythm, normal_S1, normal_S2, (-)S3, (-)S4, no_murmur, no_rub. ABDOMEN: normal_BS, soft, no_abd_tenderness, (-)guarding, (-)rebound, no_organomegaly, no_abd_masses. EXTREMITIES: good pulses in all_extremities, no_swelling\tenderness in the extremities, no_edema. SKIN: warm, dry, good_color, no_rash. MENTAL_STATUS: speech_clear, oriented_X_3, normal_affect, responds_appropriately to questions. NEURO: Neg Motor or Sensory Deficits on exam, CN 2-12 intact, DTR 2+ symmetric x 4, No cerbellar signs Course - Re-evaluation Re-evalutation: 03/24/19 09:01 53-year-old female presents with chest discomfort and sore throat. Patient stat es she had unprotected intercourse on the and began having symptoms on the she is having green vaginal discharge. She declined a pelvic pain so we will have her cell swab. Her abdomen is soft and supple we will check a urine. The patient also has a sore and red throat I do not see any green exudates or anything of a sore to suggest gonococcal pharyngitis however we will treat her empirically for her STD. EKG is a normal sinus rhythm. Checking just generalized labs my suspicion for ACS is low. 03/24/19 13:09 X-ray is normal. She was given antibiotics for STDs. Rapid strep is negative. Patient will be discharged home. Of urinary tract infection will be placed on Bactrim. - Vital Signs Vital signs: Temp Pulse Resp BP Pulse Ox 98.6 F 95 17 102/72 98 03/24/19 08:14 03/24/19 08:14 03/24/19 12:01 03/24/19 12:00 03/24/19 12:01 - Laboratory Result Diagrams: 03/24/19 09:32 03/24/19 09:32 Laboratory results interpreted by me: 03/24/19 03/24/19 09:32 09:32 WBC 13.4 H Absolute Neuts (auto) 10.0 H Urine Blood SMALL H Ur Leukocyte Esterase LARGE H - Diagnostic Test Radiology reviewed: Reports reviewed Radiology results interpreted by me: 03/24/19 13:09 Chest X-Ray 03/24/19 08:57 IMPRESSION: NO ACUTE RADIOGRAPHIC FINDING IN THE CHEST. - EKG Interpretation by [facility] EKG shows normal: Sinus rhythm Rhythm: NSR Discharge - Discharge Clinical Impression: Vaginal discharge, Sore throat UTI (urinary tract infection) Qualifiers: Urinary tract infection type: acute cystitis Hematuria presence: without hemat uria Qualified Code(s): N30.00 - Acute cystitis without hematuria Condition: Good Disposition: HOME, SELF-CARE Instructions: Trimethoprim-Sulfa ([facility]), Urinary Tract Infection ([facility]), Chest Pain of Unclear Cause ([facility]) Prescriptions: Sulfamethoxazole/Trimethoprim [Bactrim Ds Tablet] 1 each PO Q12 #14 tablet
--- NOTE | 2019-03-24 09:54 | RADIOLOGY REPORT (SQ) ---
EXAM DESCRIPTION: CHEST 2 VIEWS COMPLETED DATE/TIME: 03/24/2019 9:47 am REASON FOR STUDY: CP COMPARISON: 11/25/2011 EXAM PARAMETERS: NUMBER OF VIEWS: two views TECHNIQUE: Digital Frontal and Lateral radiographic views of the chest acquired. RADIATION DOSE: NA LIMITATIONS: none FINDINGS: LUNGS AND PLEURA: No opacities, masses or pneumothorax. No pleural effusion. MEDIASTINUM AND HILAR STRUCTURES: No masses or contour abnormalities. HEART AND VASCULAR STRUCTURES: Heart normal size. No evidence for failure. BONES: No acute findings. HARDWARE: None in the chest. OTHER: No other significant finding. IMPRESSION: NO ACUTE RADIOGRAPHIC FINDING IN THE CHEST. TECHNICAL DOCUMENTATION: JOB ID: [id number] [employer]- All Rights Reserved Reading location - IP/workstation name: [email or web address]
[2019-03-24 10:18] LABS: BACTERIA (WET MOUNT) 4+ BACTERIA SEEN; EPITHELIALS (WET MOUNT) 3+ EPITHELIALS SEEN; RBCS (WET MOUNT) 1+ RBCS SEEN; T.VAGINALIS (WET MOUNT) NO TRICHOMONAS SEEN; WBCS (WET MOUNT) 4+ WBCS SEEN; YEAST (WET MOUNT) NO YEAST SEEN
[2019-03-24 10:20] LABS: ABSOLUTE BASOPHILS # (AUTO) 0.1 10^3/uL (0.0-0.2); ABSOLUTE LYMPHOCYTES (AUTO) 2.3 10^3/uL (0.5-4.7); ABSOLUTE MONOCYTES (AUTO) 1.1 10^3/uL (0.1-1.4); BASOPHILS % (AUTO) 0.7 % (0-2); EOSINOPHILS % (AUTO) 0.2 % (0-6); HEMATOCRIT 41.5 % (36.0-47.0); HEMOGLOBIN 14.2 g/dL (12.0-15.5); LYMPHOCYTES % (AUTO) 16.8 % (13-45); MEAN CORPUSCULAR HEMOGLOBIN 31.8 pg (27.0-33.4); MEAN CORPUSCULAR HGB CONC 34.2 g/dL (32.0-36.0); MEAN CORPUSCULAR VOLUME 93 fl (80-97); MONOCYTES % (AUTO) 8.1 % (3-13); PLATELET COUNT 281 10^3/uL (150-450); RED BLOOD COUNT 4.46 10^6/uL (3.72-5.28); RED CELL DISTRIBUTION WIDTH 12.4 % (11.5-14.0); SEGMENTED NEUTROPHILS % (AUTO) 74.2 % (42-78); TOTAL CELLS COUNTED % (AUTO) 100 %; WHITE BLOOD COUNT 13.4 10^3/uL (4.0-10.5)
[2019-03-24 10:35] LABS: ANION GAP 12 (5-19); BLOOD UREA NITROGEN 7 mg/dL (7-20); CARBON DIOXIDE 27 mmol/L (22-30); CHLORIDE 99 mmol/L (98-107); GLUCOSE 102 mg/dL (75-110); POTASSIUM 4.4 mmol/L (3.6-5.0)
[2019-03-24 10:36] LABS: AMORPHOUS SEDIMENT,URINE TRACE /HPF; APPEARANCE,URINE CLOUDY; BILIRUBIN,URINE NEGATIVE (NEGATIVE); COLOR,URINE COLORLESS; GLUCOSE, URINE NEGATIVE (NEGATIVE); KETONES,URINE NEGATIVE (NEGATIVE); LEUKOCYTE ESTERASE,URINE LARGE (NEGATIVE); NITRITE,URINE NEGATIVE (NEGATIVE); PROTEIN,URINE NEGATIVE (NEGATIVE); UROBILINOGEN,URINE NEGATIVE mg/dL (<2.0)
[2019-03-24 10:37] LABS: URINE SPECIFIC GRAVITY 1.009
[2019-03-24 11:54] LABS: CHLAM PCR NOT DETECTED (NOT DETECT)
[2019-03-24 13:22] VITALS: BP 102/66
--- NOTE | 2019-03-24 14:28 | EKG REPORT ---
SEVERITY:- NORMAL ECG - SINUS RHYTHM : Confirmed by: Obinna Boland MD 24-Mar-2019 14:27:58
== END 2019-03-24 13:13 | disposition home or self-care (01) ==
LOC: ER 08:03
DX: J02.9 Acute pharyngitis, unspecified (principal); N30.00 Acute cystitis without hematuria; R07.9 Chest pain, unspecified; N89.8 Other specified noninflammatory disorders of vagina; R30.0 Dysuria; R05 Cough; R10.9 Unspecified abdominal pain; R06.00 Dyspnea, unspecified; F17.200 Nicotine dependence, unspecified, uncomplicated; Z88.8 Allergy status to other drugs, medicaments and biological substances; Z88.5 Allergy status to narcotic agent; Z90.49 Acquired absence of other specified parts of digestive tract; Z20.2 Contact with and (suspected) exposure to infections with a predominantly sexual mode of transmission
CPT/HCPCS: 93005; 36415; 87070; 87210; 87880; 85025; 80048; 81001; 84484; 87491; 87591; 71046; 93010; J0696; 96365; 99284

== ENCOUNTER 2019-07-29 15:19 | Emergency (ER) | payer SELFPAY ==
[2019-07-29 15:24] VITALS: BP 117/56
--- NOTE | 2019-07-29 15:36 | ER Document Report ---
ED GI/ - General Chief Complaint: Pain With Urination Stated Complaint: URINARY PAIN Time Seen by Provider: 07/29/19 15:30 Primary Care Provider: [facility] [Provider Group] - Follow up as needed [facility] [Provider Group] - Follow up as needed [facility] [Provider Group] - Follow up as needed [facility] [Provider Group] - Follow up as needed [facility] [Provider Group] - Follow up as needed Mode of Arrival: Ambulatory Information source: Patient Notes: 53-year-old female presents to ED for complaint of pelvic pain, vaginal discharge, and burning with urination. She states she has had similar symptoms before and had trichomonas and bacterial vaginosis in the past and been treated for this. She states her partner was also states he was treated but she is not sure because she is having the symptoms again. She states they do always use protection but the condom tore so she is concerned that she has an STD again. She does have some mild pelvic pain at this time. Will get a pelvic exam with swabs and a urine treat with Rocephin and azithromycin and wait for the urine and wet mount to come back in and treat accordingly for those. Patient is alert oriented respirations regular nonlabored speaking in full sentences. TRAVEL OUTSIDE OF THE [place] IN LAST 30 DAYS: No - HPI Patient complains to provider of: Pelvic pain, Vaginal discharge, Other - Pain and burning with urination Onset: Other - 3 days ago Timing/Duration: Gradual Quality of pain: Burning, Dull Severity at maximum: Mild Severity in ED: Mild Pain Level: 1 Location: Pelvis Vaginal bleeding (Compared to normal period): None Associated symptoms: Urinary frequency, Urinary urgency, Vaginal discharge Exacerbated by: Denies Relieved by: Denies Similar symptoms previously: Yes Recently seen / treated by doctor: No - Related Data Allergies/Adverse Reactions: ibuprofen Allergy (Intermediate, Verified 07/29/19 15:29) ulcers in mouth acetaminophen [From Lortab] Allergy (Verified 07/29/19 15:29) hydrocodone [From Lortab] Allergy (Verified 07/29/19 15:29) naproxen Allergy (Verified 07/29/19 15:29) Past Medical History - General Information source: Patient - Social History Smoking Status: Former Smoker Frequency of alcohol use: None Drug Abuse: None Lives with: Family - Controlled Family History: None Patient has suicidal ideation: No Patient has homicidal ideation: No - Past Medical History Cardiac Medical History: Reports: None Pulmonary Medical History: Reports: None EENT Medical History: Reports: None Neurological Medical History: Reports: None Endocrine Medical History: Reports: None Renal/ Medical History: Reports: Hx Pelvic Inflammatory Disease Malignancy Medical History: Reports: None GI Medical History: Reports: None Musculoskeletal Medical History: Reports Hx Arthritis, Reports Hx Musculoskeletal Deformity Skin Medical History: Reports None Psychiatric Medical History: Reports: Other - Chronic pain syndrome Traumatic Medical History: Reports: Hx Fractures Infectious Medical History: Reports: None Past Surgical History: Reports: Hx Appendectomy, Hx Orthopedic Surgery - L hip replacement, Hx Tonsillectomy - Immunizations Immunizations up to date: No Hx Diphtheria, Pertussis, Tetanus Vaccination: No - 2003 History of Pneumococcal Vaccine: No History of Influenza Vaccine for 04/2019 - 09/2019 Season: No Review of Systems - Review of Systems Constitutional: No symptoms reported EENT: No symptoms reported Cardiovascular: No symptoms reported Respiratory: No symptoms reported Gastrointestinal: No symptoms reported Female Genitourinary: Vaginal discharge, Vaginal odor, Other - Pelvic pain Musculoskeletal: No symptoms reported Skin: No symptoms reported Hematologic/Lymphatic: No symptoms reported Neurological/Psychological: No symptoms reported -: Yes All other systems reviewed and negative Physical Exam - Vital signs Vitals: Temp Pulse Resp BP Pulse Ox 97.6 F 72 16 117/56 L 100 07/29/19 15:23 07/29/19 15:23 07/29/19 15:23 07/29/19 15:23 07/29/19 15:23 Interpretation: Normal - General General appearance: Appears well, Alert - HEENT Head: Normocephalic, Atraumatic Eyes: Normal Pupils: PERRL - Respiratory Respiratory status: No respiratory distress Chest status: Nontender Breath sounds: Normal Chest palpation: Normal - Cardiovascular Rhythm: Regular Heart sounds: Normal auscultation Murmur: No - Abdominal Inspection: Normal Distension: No distension Bowel sounds: Normal Tenderness: Nontender Organomegaly: No organomegaly - Genitourinary External exam: Normal Speculum exam: Vaginal discharge Vaginal bleeding: None Bimanuel exam: Cervical motion tender, Adnexal tenderness - Back Back: Normal, Nontender - Extremities General upper extremity: Normal inspection, Nontender, Normal color, Normal ROM, Normal temperature General lower extremity: Normal inspection, Nontender, Normal color, Normal ROM, Normal temperature, Normal weight bearing. No: Erika's sign - Neurological Neuro grossly intact: Yes Cognition: Normal Orientation: AAOx4 [place] Coma Scale Eye Opening: Spontaneous Arash Coma Scale Verbal: Oriented Arash Coma Scale Motor: Obeys Commands Arash Coma Scale Total: 15 Speech: Normal Motor strength normal: LUE, RUE, LLE, RLE Sensory: Normal - Psychological Associated symptoms: Normal affect, Normal mood - Skin Skin Temperature: Warm Skin Moisture: Dry Skin Color: Normal Course - Re-evaluation Re-evalutation: 07/29/19 21:05 Discussed lab results with patient. Patient did request female swabs. Pelvic exam was completed swabs were completed patient was treated with antibiotics and discharged home. Patient was to call for results to the culture line. - Vital Signs Vital signs: Temp Pulse Resp BP Pulse Ox 97.6 F 72 16 117/56 L 100 07/29/19 15:23 07/29/19 15:23 07/29/19 15:23 07/29/19 15:23 07/29/19 15:23 - Laboratory Laboratory results interpreted by me: 07/29/19 15:43 Urine Blood SMALL H Leukocyte Esterase Rfl LARGE H Discharge - Discharge Clinical Impression: UTI (urinary tract infection) Qualifiers: Urinary tract infection type: acute cystitis Hematuria presence: without hematuria Qualified Code(s): N30.00 - Acute cystitis without hematuria Vaginitis Qualifiers: Chronicity: acute Qualified Code(s): N76.0 - Acute vaginitis Condition: Stable Disposition: HOME, SELF-CARE Additional Instructions: URINARY TRACT INFECTION: Your evaluation indicates that you have a urinary tract infection. This is due to germs growing in the bladder. This is a common problem. This infection usually responds quickly to antibiotics. Your antibiotic should be taken exactly as prescribed. Drink plenty of fluids -- three to four quarts a day. Occasionally, a bladder anesthetic will be prescribed to help stop the feeling of urgency until the antibiotic has a chance to clear the infection. This may cause your urine to be dark orange. Certain urine infections require a culture. If the doctor obtained a culture, the results will be back in two days. You should call to see if a change in treatment is needed. A repeat urinalysis after you finish treatment is often recommended. The physician will let you know if further testing is required. Call the doctor if you develop fever, chills, flank pain, inability to urinate, or blood in the urine. VAGINITIS: Your exam shows that you have vaginitis, a vaginal infection. The infe ction can be caused by a many different organisms, including trichomonas or Gardnerella. The usual symptoms are vaginal irritation and discharge. The treatment is usually antibiotics such as Flagyl. Laboratory tests can determine which germ is responsible. Use the medication as prescribed. Because this infection can be transmitted sexually, your sexual partner may need to be checked and treated also. If your physician has not discussed this with you, please check before resuming sexual relations. If a culture shows gonorrhea or chlamydia, the infection must be reported to the health department. Call the doctor if you develop pelvic pain, fever, or problems with urination, or if you don't improve as expected. CEPHALOSPORINS: An antibiotic of the cephalosporin class has been prescribed. This type of antibiotic covers a wide variety of infections, including those of the skin, lungs, middle ear, and urinary tract. This antibiotic is somewhat similar to the penicillin family. In rare cases, a person who is allergic to penicillin will also be allergic to this medication. If you have had a severe allergic reaction to penicillin, and have not taken this antibiotic since that time, notify your doctor. Antibiotics which cover many germs ("broad spectrum" antibiotics) are more likely to cause diarrhea or "yeast" infections. Women prone to vaginal yeast problems may suffer an attack after taking this antibiotic. In infants, oral thrush (white spots "stuck" on the cheek) or yeast diaper rash may result. See your doctor if these problems occur. Call the doctor at once if you develop hives, itching, shortness of breath, or lightheadedness. DOXYCYCLINE: Doxycycline (Vibramycin, Doryx) is an antibiotic of the tetracycline family. This type of drug is useful for infections of the respiratory tract and genital tract, and is sometimes used for intestinal infections. Unlike most tetracyclines, doxycycline can be taken with food. It is longer acting, and (usually) less prone to side effects than regular tetracycline. Tetracycline antibiotics can stain immature teeth and SHOULD NOT BE TAKEN BY CHILDREN, NURSING MOTHERS, OR WOMEN. Tetracyclines can make you more prone to sunburn. Abdominal cramping, nausea, and diarrhea are occasional side effects. Women may experience vaginal yeast infections. Call the doctor at once if you develop hives, itching, shortness of breath, or lightheadedness. AZITHROMYCIN: Azithromycin (Zithromax) is a broad spectrum antibiotic in the same class as erythromycin. It can treat a variety of bacterial infections, but is most frequently used for respiratory infections. Azithromycin is extremely long-lasting. It accumulates in body tissues and continues to kill bacteria for many days. In order to improve absorption, Azithromycin should be taken at least one hour before or two hours after a meal. It does not have the same strong tendency to upset the stomach as erythromycin and is usually very well tolerated. Patients who have had a rash or other true allergic reactions to erythromycin should not take this medication. Call if you develop gastrointestinal distress, severe diarrhea, rash, hives, itching, or shortness of breath. FOLLOW-UP CARE: If you have been referred to a physician for follow-up care, call the physicians office for an appointment as you were instructed or within the next two days. If you experience worsening or a significant change in your symptoms, notify the physician immediately or return to the Emergency Department at any time for re-evaluation. Prescriptions: Doxycycline Hyclate 100 mg PO BID #14 capsule Nitrofurantoin/Nitrofuran Mac [Macrobid 100 mg Capsule] 1 tab PO BID #20 capsule Referrals: [facility] [Provider Group] - Follow up as needed [facility] [Provider Group] - Follow up as needed [facility] [Provider Group] - Follow up as needed [facility] [Provider Group] - Follow up as needed [facility] [Provider Group] - Follow up as needed
[2019-07-29] MEDS ORDERED: LIDOCAINE 1% INJ-PF (10 MG/ML) 30 ML SDV INJ ONE (15:41)
[2019-07-29] MEDS ORDERED: CEFTRIAXONE INJ 250 MG VIAL IM ONE (15:41)
[2019-07-29] MEDS ORDERED: AZITHROMYCIN 250 MG TABLET PO ONE (15:41)
[2019-07-29] MEDS ORDERED: DOXYCYCLINE HYCLATE 100 MG TABLET PO ONE (15:58)
[2019-07-29 16:06] LABS: APPEARANCE,URINE SLIGHTLY-CLOUDY; BILIRUBIN,URINE NEGATIVE (NEGATIVE); COLOR,URINE STRAW; GLUCOSE, URINE NEGATIVE (NEGATIVE); KETONES,URINE NEGATIVE (NEGATIVE); PROTEIN,URINE NEGATIVE (NEGATIVE); URINE SPECIFIC GRAVITY 1.004; UROBILINOGEN,URINE NEGATIVE mg/dL (<2.0)
[2019-07-29 16:20] LABS: BACTERIA (WET MOUNT) 3+ BACTERIA SEEN; T.VAGINALIS (WET MOUNT) NO TRICHOMONAS SEEN; WBCS (WET MOUNT) 3+ WBCS SEEN; YEAST (WET MOUNT) NO YEAST SEEN
[2019-07-29 17:51] LABS: CHLAM PCR NOT DETECTED (NOT DETECT)
== END 2019-07-29 16:45 | disposition home or self-care (01) ==
LOC: ER 15:19
DX: N30.00 Acute cystitis without hematuria (principal); N76.0 Acute vaginitis; R10.2 Pelvic and perineal pain; Z20.2 Contact with and (suspected) exposure to infections with a predominantly sexual mode of transmission; Z87.891 Personal history of nicotine dependence; Z88.8 Allergy status to other drugs, medicaments and biological substances; Z88.6 Allergy status to analgesic agent; Z88.5 Allergy status to narcotic agent
CPT/HCPCS: 99283; 96372; 87086; 87210; 81001; 87491; 87591; J3490; J0696